=== PATIENT | female | born 1965 | race Caucasian/White ===

== ENCOUNTER 2024-03-09 14:18 | Outpatient (CLI) | payer BC, SELFPAY ==
--- NOTE | ~2024-03-09 | MM_ITS ---
EXAMINATION: MM screening tanya BI w william HISTORY: Screening TECHNIQUE: Craniocaudal and mediolateral oblique 3-D tomosynthesis images were obtained and synthetic 2-D images were generated. CAD analysis was submitted and interpreted. COMPARISON: 10/21/2012 BREAST PARENCHYMAL COMPOSITION: Dense: The breasts are extremely dense, which lowers the sensitivity of mammography. FINDINGS: There is no evidence of suspicious mass, calcification, or architectural distortion to sugg est malignancy in either breast. There has been no suspicious interval change. IMPRESSION: 1. No mammographic evidence of malignancy. 2. Recommend routine screening mammography in one year. BI-RADS Category 1: Negative Reviewed, dictated and finalized at location A. [facility]
--- OUTSIDE RECORDS SUMMARY | 2024-03-09 15:15 | XMS_ITS | Referral Summary ---
Author Organization [facility] [address] [place] [id number] Care Team Providers Care Web Knitter Name Role Phone Javi Rodriguez MD Primary Care Provider [phone]- [phone] Allergies Active Allergy Reactions Criticality Noted Date Comments Penicillins Hives Medium 03/09/2019 Medications calcium carbonate (CALCIUM 600 ORAL) Take 2 tablets by mouth daily Active cholecalciferol (cholecalcifero l) 1000 unit tablet Take 1,000 Units by mouth daily Active black cohosh 200 mg capsule Take 200 mg by mouth daily Active multivitamin-mi nerals-lutein (Multivitamin 50 Plus) tablet Take 1 tablet by mouth daily Active Active Problems Problem Noted Date Diagnosed Date Chronic fatigue 05/03/2019 Assessment & Plan (05/03/2019 2:07 PM CDT): Multiple nonspecific symptoms Will recheck thyroid function test include TSH and free T4 If above test results come back normal advised to follow up with primary care doctor If about test results come back abnormal will further evaluate Reviewed lab results TSH within normal limits I Have nothing else to add at this time advised to follow up with primary care doctor Vitamin D deficiency 05/03/2019 Assessment & Plan (05/03/2019 2:07 PM CDT): Check levels Reviewed lab results - WNL Social History Tobacco Use Types Packs/Day Years Used Date Smoking Tobacco: Never Smokeless Tobacco: Never Alcohol Use Standard Drinks/Week Comments Yes 0 (1 standard drink = 0.6 oz pur e alcohol) PHQ-2 Answer Date Recorded PHQ-2 Score 0 03/09/2019 Personal Safety Answer Date Recorded Getting School Help Needed Not on file 04/27 Comments Unknown Sex and Gender Information Value Date Recorded Sex Assigned at Not on file Legal Sex Female 11:55 AM WHIPPER Gender Identity Not on file Sexual Orientation Not on file Last Filed Vital Signs Vital Sign Reading Time Taken Comments Blood Pressure 112/72 03/09/2019 10:25 AM WHIPPER Pulse 71 03/09/2019 10:25 AM WHIPPER Temperature - - Respiratory Rate 16 03/09/2019 10:25 AM WHIPPER Oxygen Saturation - - Inhaled Oxygen Concentration - - Weight 69.6 kg (153 lb 6.4 oz) 03/09/2019 10:25 AM WHIPPER Height 160 cm (5' 3 ) 03/09/2019 10:25 AM WHIPPER Body Mass Index 27.17 03/09/2019 10:25 AM WHIPPER Plan of Treatment [place] [address] [employer] [place] Care Teams Web Knitter Relationship Specialty Start Date End Date Javi Rodriguez MD [address] [facility] [address] [place], [place] [id number] PCP - General Internal Medicine 02/09/19
--- OUTSIDE RECORDS SUMMARY | 2024-03-09 15:15 | XMS_ITS | Continuity of Care Document ---
Author Organization [facility] Address [address] [place] [address] Phone Care Team Providers Care Farm Truck Driver Name Role Phone [facility] Unavailable Unavail able Unavailable Unavailable Unavailable Advance Directives Directive Yes / No Effective Date File Name No Information Encounters Encounter Description Practice Location Reason(s) For Visit Diagnoses Date Provider Providers Copied on Encounter Formerly [facility], [address] [place] [address] [address], [place], [place], [id number], [place] tel:[phone] [facility] No Information [facility] [address] [facility], [address], [place], [place], [id number] , [place]. tel: [phone] Family History Family Member Type Diagnosis Age At Onset No Information Payers Payer name Insurance type Covered republican ID Authoriza tion(s) No Information Social History Type Description Quantity Date Captured Comments Sex Female Smoking Status No Information Chief Complaint And Reason For Visit No Information Reason For Referral Reason For Referral No Information History Of Present Illness Encounter Date Complaint History Of Prese nt Illness No Information Functional Status Date Functional Assessmen t No Information Instructions Date Instruction Additional Infor mation No Information Assessments Type Assessment Date No Information Patient Care Teams Name Effective Dates (start - stop) Status Members No Information
--- OUTSIDE RECORDS SUMMARY | 2024-03-09 15:15 | XMS_ITS | Clinical Summary ---
Author Organization [facility] Address [address] [facility] Attn: Epic Prelude ADT MAYKEL RODRIGUEZ [address] Care Team Providers Care Brake [address] Freight Name Role Phone Unavailable Primary Care Provider Unavailabl e Medications albuterol sulfate 90 mcg/Actuation inhaler INHALE 2 PUFFS BY MOUTH EVERY 4-6 HOURS. 8.5 Gram 3 12/08/2021 3:26 PM CDT 2 Active Tirosint 25 mcg Capsule Take 1 capsule by mouth in the morning. 30 Capsule 5 07/19/2023 6:09 PM CDT 4 Active neomycin-polymy keven-dexAMETHaso ne (Maxitrol) 3.5mg/mL-10,000 unit/mL-0.1 % suspension ADMINISTER 1 DROP IN EACH EYE 4 TIMES DAILY. 5 mL 12/19/2023 4:36 PM COLLECTION SYSTEMS WORKER 4 Active azithromycin (Zithromax Z-Leandro) 250 mg tablet TAKE 2 TABLETS BY MOUTH A SINGLE DOSE ON DAY 1 , THEN TAKE 1 TABLET ONCE DAILY ON DAYS 2 THRU 5. 6 Tablet 12/19/2023 4:36 PM COLLECTION SYSTEMS WORKER 4 Active tobramycin-dexA METHasone (TOBRADEX) 0.3-0.1 % suspension ADMINISTER 1 DROP IN EACH EYE 3 TIMES DAILY FOR 1 WEEK. 5 mL 12/27/2023 2:32 PM COLLECTION SYSTEMS WORKER 4 Active Encounters Date Type Department Care Team Description 02/18/2024 External Device Data [facility]STRACTION Provider, Abstract 12/11/2023 External Device Data [facility] Provider, Abstract from Last 3 Months Social History Tobacco Use Types Packs/Day Years Used Date Smoking Tobacco: Never Assessed Comments Unknown Sex and Gender Information Value Date Recorded Sex Assigned at Not on file Legal Sex Female 3:27 PM CDT Gender Identity Not on file Sexual Orientation Not on file Plan of Treatment Health Maintenance Due Date Last Done Comments DTAP/TDAP/TD VACCINES (1 - Tdap) 11/10/1982 CERVICAL CANCER SCREENING 11/10/1993 BREAST CANCER SCREENING 2003 COLORECTAL SCREENING 11/10/2008 Colorectal Cancer Screening 11/10/2008 FIT-DNA Q 3 years 11/10/2008 FIT/FOBT Q 1 year 11/10/2008 Flex Sig/CT Colonography Q 5 years 11/10/2008 ZOSTER VACCINE (1 of 2) 11/10/2013 INFLUENZA VACCINE (#1) 2023 RSV VACCINE (60+ or ) (1 - 1-dose 75+ series) 11/10/2038 HEPATITIS B VACCINES Aged Out No long er eligible based on patient's age to complete this topic PNEUMOCOCCAL VACCINE 0-64 YEARS Aged Out No longer eligible based on patient's age to complete this topic Insurance [employer] [facility] [employer], [email or web address]
--- OUTSIDE RECORDS SUMMARY | 2024-03-09 15:15 | XMS_ITS | Clinical Summary ---
Author Organization [facility] [address] [place] [address] Care Team Providers Care Business Performance Advisor Name Role Phone Javi Rodriguez MD Primary Care Provider [phone]- [phone] Allergies Active Allergy Reactions Criticality Noted Date [...] Check levels Reviewed lab results - WNL Surgical History Surgery Date Site/Laterality Comments GANGLION CYST EXCISION Left wrist Medical History Medical History Date Comments Asthma Family History Medical History Relation Name Comments Stroke Sister Relation Name Status Comments Sister Social History Tobacco Use Types Packs/Day Years [...] on file Legal Sex Female 11:55 AM WAX MACHINE OPERATOR Gender Identity Not on file Sexual Orientation Not on file Obstetrics History Last Filed Vital Signs Vital Sign Reading Time Taken Comments Blood Pressure 112/72 03/09/2019 10:25 AM WAX MACHINE OPERATOR Pulse 71 03/09/2019 10:25 AM WAX MACHINE OPERATOR Temperature - - Respiratory Rate 16 03/09/2019 10:25 AM WAX MACHINE OPERATOR Oxygen Saturation - - Inhaled Oxygen Concentration - - Weight 69.6 kg (153 lb 6.4 oz) 03/09/2019 10:25 AM WAX MACHINE OPERATOR Height 160 cm (5' 3 ) 03/09/2019 10:25 AM WAX MACHINE OPERATOR Body Mass Index 27.17 03/09/2019 10:25 AM WAX MACHINE OPERATOR Plan of Treatment [place] [phone] [employer] [place] Care Teams Business Performance Advisor Relationship Specialty Start Date End Date Javi Rodriguez MD [address] [facility] [address] [place], [place] [phone] (work) PCP - General Internal Medicine 02/09/19
== END 2024-03-09 14:19 | disposition home or self-care (01) ==
LOC: ANHIMG 14:21
PROVIDERS: PCP Physician Assistant; Visit Provider Obstetrics & Gynecology
DX: Z12.31 Encounter for screening mammogram for malignant neoplasm of breast (principal)
CPT/HCPCS: 77063; 77067